=== PATIENT | female | born 1965 | race African-American/Black ===

== ENCOUNTER 2024-03-31 18:01 | Emergency (ER) | payer OTHER ==
[~2024-03-31] VITALS: Ht 170.2 cm; Wt 118.0 kg
[2024-03-31 18:04] VITALS: BP 147/87; PULSE 80; RESP 16; TEMP 98; O2SAT 98
[2024-03-31] MEDS ORDERED: METH-653 MT (19:02)
[2024-03-31] MEDS ORDERED: IBUP-2029 MT (19:02)
[2024-03-31] MEDS: METHOCARBAMOL 500MG TABLET PO ONE (19:20)
[2024-03-31] MEDS: IBUPROFEN 600MG TABLET PO ONE (19:20)
== END 2024-03-31 19:21 | disposition home or self-care (01) ==
LOC: ER 18:01
DX: S13.4XXA Sprain of ligaments of cervical spine, initial encounter (principal); X58.XXXA Exposure to other specified factors, initial encounter; Y93.89 Activity, other specified; Y92.89 Other specified places as the place of occurrence of the external cause; Y99.8 Other external cause status
CPT/HCPCS: 99283